=== PATIENT | male | born 1950 | race Caucasian/White ===

== ENCOUNTER 2017-06-10 08:06 | Outpatient (CLI) | payer MEDICARE ==
--- NOTE | 2017-06-10 08:53 | CT ---
CT OF THE CHEST WITHOUT CONTRAST LOW DOSE SCREENING PROTOCOL: History: 30-year history of smoking. Patient quit smoking in 2007. Technique: Multiple contiguous axial images were obtained in a CT of the chest without contrast per l ow dose cancer screening protocol. Coronal reformats were performed. FINDINGS: There is a triangular shaped nodular opacity immediately adjacent to the minor fissure in the right l maribeth measuring 4 mm in size. No other pulmonary nodules are seen. No pneumothorax or pleural effusion are seen. The heart is normal in size without focal cardiac abnormality. Soft tissues are seen in the coronary arteries and aorta. No enlarged hilar mediastinal lymph nodes are appreciated. Degenerative changes are seen in the spine. The chest wall soft tissues are unremarkable. The visuali zed subdiaphragmatic structures are unremarkable. IMPRESSION: 1. Lung rads category 2 - benign findings. POS: [facility]
== END 2017-06-10 08:07 | disposition home or self-care (01) ==
LOC: CT 08:06
PROVIDERS: ATTEND Family Medicine
DX: Z87.891 Personal history of nicotine dependence (principal)
CPT/HCPCS: G0297

== ENCOUNTER 2017-12-10 19:25 | Observation (INO) | payer MEDICARE ==
[~2017-12-10 19:25] MED LIST: ISOVUE-370 76%-LOCM 1 ML ONE
[2017-12-10 20:10] LABS: #Basophils 0.1 thou/uL (0.0-0.2); #Eosinphils 0.2 thou/uL (0.0-0.7); #Lymphocytes 3.1 thou/uL (1.20-3.40); #Monocytes 0.7 thou/uL (0.11-0.59); #Neutrophils 3.7 thou/uL (1.40-6.50); %Basophils 1.9 % (0.0-1.0); %Eosinophils 2.8 % (0.0-10.0); %Lymphocytes 39.4 % (21.0-51.0); %Monocytes 8.5 % (0.0-10.0); %Neutrophils 47.4 % (42.0-75.0); Hemoglobin 15.8 g/dL (14.0-18.0); Mean Corpuscular HGB CONC 35.4 g/dL (32.0-36.0); Mean Corpuscular Hemoglobin 32.3 pg (27.0-31.0); Mean Corpuscular Volume 91.2 fL (78.0-98.0); Mean Platelet Volume 6.6 fL (7.4-10.4); Platelet Count 175 thou/uL (130-400); RBC Distribution Width 12.9 % (11.5-14.5); Red Blood Cell (RBC) Count 4.89 mill/uL (4.70-6.10); White Blood Cell (WBC) Count 7.8 thou/uL (4.8-10.8)
[2017-12-10] MEDS ORDERED: Nitroglycerin 0.4 MG TAB (25 Tab Bottle) ONE (20:19)
[2017-12-10 20:36] LABS: ALT (SGPT) 19 U/L (8-55); AST (SGOT) 24 U/L (5-34); Alkaline Phosphatase 82 U/L (40-150); Anion Gap 17 mmol/L (10-20); BUN (Urea Nitrogen) 16 mg/dL (8.4-25.7); Bilirubin, Total 1.1 mg/dL (0.2-1.2); Calc. Creatinine Clearance 0 mL/min (70-130); Calcium 8.6 mg/dL (7.8-10.44); Carbon Dioxide 24 mmol/L (23-31); Chloride 101 mmol/L (98-107); Estimated GFR-MDRD 83; Globulin 2.6 g/dL (2.4-3.5); Glucose 101 mg/dL (80-115); Lipase 20 U/L (8-78); Potassium 3.4 mmol/L (3.5-5.1); Protein, Total 6.6 g/dL (5.8-8.1); Sodium 139 mmol/L (136-145)
[2017-12-10 20:38] LABS: Troponin I Less than 0.010 ng/mL (< 0.028)
[2017-12-10 20:46] LABS: CKMB 8.8 ng/mL (0-6.6)
[2017-12-10 21:14] LABS: Bilirubin Negative (Negative); Blood, Urine Moderate (Negative); Clarity CLEAR (Clear); Glucose, Urine (Dipstick) Negative (Negative); Leukocyte Negative (Negative); Nitrite Negative (Negative); Protein, Urine (Dipstick) Negative (Neg-Trace); Specific Gravity, Urine 1.014 (1.002-1.036)
[2017-12-10 21:16] LABS: Bacteria/HPF None Seen HPF (None Seen); Hyaline Casts/LPF 0-3 HYALINE CAST LPF (0-3 Hyaline); Pathc Cast-AUWi Flag 0.29 (0-2.49); Squamous Epithelial None Seen HPF (0-3); WBC/HPF 0-3 HPF (0-3)
--- NOTE | 2017-12-10 21:21 | RAD ---
CHEST ONE VIEW: 12/10/17 HISTORY: Chest pain. COMPARISON: CT 06/10/17. FINDINGS: Lungs without focal air space consolidation, pneumothorax or effusion. Incomplete evaluation of ACDF hardware. Heart size is at the upper limits of normal. Mild elevation of the left hemidiaphragm. IMPRESSION: No acute inflammatory process in the chest. POS: [facility]
--- NOTE | 2017-12-10 22:41 | CT ---
CT ANGIOGRAM OF THE CHEST 12/10/17 HISTORY: Evaluate for pulmonary artery embolism. Chest pain. COMPARISON: None. TECHNIQUE: CT angiogram of the chest is performed in the axial plane. Three dimensional reformatted images are s ubmitted for interpretation. FINDINGS: No mediastinal mass, lymphadenopathy or hematoma. Heart size is within normal limits. No pericardial fluid. The thoracic aorta and upper abdominal aorta have a normal caliber. No periaortic fat strandin g. There are coronary calcifications. The visualized upper solid organs are unremarkable. Adequate contrast opacification of the pulmonary arterial system to the level of the segmental arteri es. No filling defect to suggest thromboembolism. Trachea and central bronchi are patent. 5 mm nodule adjacent to the minor fissure likely representing a subpleural lymph node. Additional nodules are not appreciated. No pleural effusion. No pneumothora x. Minimal atelectatic changes are noted. No osseous abnormalities. IMPRESSION: 1. No evidence of pulmonary artery embolism to the level of the segmental arteries. 2. Pleural based opacity adjacent to the minor fissure likely represents a subpleural lymph node . This lesion is unchanged from a CT lung scan 06/10/17. POS: [facility]
[2017-12-10 23:38] LABS: Troponin I Less than 0.010 ng/mL (< 0.028)
[2017-12-10] MEDS ORDERED: Diabetic Tussin 200 MG/10 ML UDCUP PO PRN (23:54)
[2017-12-10] MEDS ORDERED: Mag-Al 1200 mg/1200 mg/30 ML UDCUP PO PRN (23:54)
[2017-12-10] MEDS ORDERED: Senokot 8.6 MG TAB PO PRN (23:54)
[2017-12-10] MEDS ORDERED: Calcium Carbonate 500 MG ChewTAB PO PRN (23:54)
[2017-12-10] MEDS ORDERED: Nitroglycerin 0.4 MG TAB (25 Tab Bottle) SL PRN (23:54)
[2017-12-10] MEDS ORDERED: Ondansetron HCl/PF 4 MG/2 ML Vial IVP PRN (23:54)
[2017-12-10] MEDS ORDERED: hydrALAZINE 20 MG/ML VIAL SLOW IVP PRN (23:54)
[2017-12-10] MEDS ORDERED: Bisacodyl 5 MG TAB PO PRN (23:54)
[2017-12-10] MEDS ORDERED: traZODone HCl 50 MG TAB PO PRN (23:54)
[2017-12-10] MEDS ORDERED: cloNIDine 0.1 MG TAB PO PRN (23:54)
[2017-12-10] MEDS ORDERED: Loratadine 10 MG TAB PO PRN (23:54)
[2017-12-10] MEDS ORDERED: traMADol HCl 50 MG TAB PO PRN (23:54)
[2017-12-10] MEDS ORDERED: Acetaminophen 325 MG TAB PO PRN (23:54)
[2017-12-10] MEDS ORDERED: Nitroglycerin 0.4 MG TAB (25 Tab Bottle) PO PRN (23:54)
[2017-12-11] MEDS: Lorazepam 1 MG TAB PO PRN ×2 (00:10→04:02)
[2017-12-11] MEDS ORDERED: Sodium Chloride 0.9% 1,000 ML IV SCH (02:30)
[2017-12-11 02:37] LABS: Troponin I Less than 0.010 ng/mL (< 0.028)
[2017-12-11 02:39] LABS: Cardiac Risk 1.9 (Less than 4.5)
--- NOTE | 2017-12-11 02:47 | HP ---
DATE OF ADMISSION: 12/10/2017 Patient was seen prior to midnight. CHIEF COMPLAINT: Chest pain. HISTORY OF PRESENT ILLNESS: Mr. Cohn is a very pleasant 67-year-old male without any significant pa st medical history except for kidney stones: who presented to the emergency room with above-mentioned complaint. History is mainly obtained with the patient himself and electronic medical records have been reviewed. Case has been discussed with admitting ER physician, Dr. Munroe. Mr. Cohn reports that last night he was woken up in the middle of night around 3:00 a.m. with about 3/10 chest pain located on the side of the sternum on the left side. He describes it as achy sensati on, which went away spontaneously. He cannot recall any relieving or exacerbating factors. It was a ssociated with some diaphoresis, but he denies any palpitations, shortness of breath, nausea, vomitin g, or dizziness. Next morning, he had the similar symptoms again in the middle of the day. He also reports that he had some groin and pelvic urinary pain and feels that he might have passed a kidney s tone. He has felt that pain in the past as well. He denies similar symptoms of the chest pain in th e past. He reports that he had underwent a stress test about 10 years ago, which was normal. One of his phys icians out of town actually did a PET scan of the heart or what sounds like a PET scan of the heart a nd it was false positive, so he underwent a cardiac catheterization, which was found to be normal. H e reports that this was about 5 years ago done in [place] by Dr. Gooden or somebody with similar na me. Upon presentation to the ER, he was hemodynamically stable and initial examination did not reveal any thing significant. His EKG was without any ST or T-wave changes and his cardiac enzymes are normal. He was given aspirin and sublingual nitroglycerin and he is now being admitted for further evaluatio n. He did have findings of elevated D-dimer, for which he underwent a CT scan of the chest, which wa s negative for any pulmonary embolism. No infiltrates or edema was seen either. PAST MEDICAL HISTORY: Renal stones. PAST SURGICAL HISTORY: 1. Kidney stone removal. 2. Cardiac catheterization, 5 years ago. 3. Cervical fusion C4 and C5. 4. Hernia repair x2. PSYCHIATRIC HISTORY: No prior psychiatric history. SOCIAL HISTORY: The patient drinks rarely. He has history of tobacco abuse in the past, up until ab out 5 years ago, where he was a 1 pack per day smoker. Since then, he is chewing tobacco. He also r eports an alcohol binge when he was on a fishing trip recently with his friends for the last 4 or 5 d ays. As a matter of fact: Has just returned yesterday and feels that he is a little bit jittery and shaky. He is not a daily drinker. FAMILY HISTORY: His father at the age of 73. He was a diabetic. His mom had a stroke 2 years ago and she is still alive. ALLERGIES: BENZOCAINE. MEDICATIONS: None. REVIEW OF SYSTEMS: A 12-point review of system is done, which is negative except for those mentioned in the history and physical. LABORATORY DATA: His CBC is unremarkable. D-dimer 0.45. Serum chemistry shows potassium of 3.4, ot herwise unremarkable. Creatine kinase slightly elevated 460. CK-MB 8.8 with normal troponin less th an 0.010. BNP is normal at 21. Lipase normal. Urinalysis show moderate blood. Chest x-ray by my r brie has no evidence to suggest any pleural effusion, infiltrate, or edema. CT angio is negative fo r pulmonary embolism. Twelve-lead EKG by my review shows no acute ST or T-wave changes. He has norm al sinus rhythm at 86 beats per minute. PHYSICAL EXAMINATION: VITAL SIGNS: Upon presentation, blood pressure 142/87, respirations 17, temperature 98.6, pulse of 8 9, saturating 96% on room air. GENERAL: No acute distress, awake, alert, oriented x3, very pleasant, sitting on the side of the bed , appears somewhat anxious. HEENT: Mucous membrane is moist and pink. No oropharyngeal exudate or erythema. Head is normocepha lic, atraumatic. Pupils equal, reactive to light and accommodation. Extraocular movement intact. NECK: Supple without any lymphadenopathy, JVD, or bruit. CHEST: Clear to auscultation without any wheezing, rales, or rhonchi. HEART: Rate and rhythm is regular without any murmur, rubs, or gallops. ABDOMEN: Soft, nontender, nondistended with positive bowel sounds. EXTREMITIES: Free of any cyanosis, clubbing, or edema. NEUROLOGIC: Nonfocal. SKIN: Free of any rashes or bruises. Feels warm and dry to touch. PSYCHIATRIC: Normal affect. IMPRESSION AND PLAN: 1. Chest pain. The patient does have multiple risk factors for the same. At this time, he does not seem to be having an acute coronary syndrome, however. He had a normal catheterization 5 years ago and what sounds like a false positive PET scan of the heart. At this time, we will admit him for fur ther risk stratification and continue the full-dose aspirin and check lipid panel. We will also obta in a pharmacological stress test in the morning. We will continue to trend serial cardiac enzymes an d use oxygen as necessary. 2. Mild rhabdomyolysis. No clear explanation to suggest the cause of it. 3. Hematuria. The patient might have symptoms of BPH. His urinalysis does not seem like a urinary tract infection. Urine culture has been sent. He will follow up with Urology as an outpatient. It is consistent with his presenting symptoms of penile pain and possibility that he might have passed r enal stone. 4. History of nephrolithiasis. 5. Code status: FULL CODE discussed with the patient. DISPOSITION: Mr. Cohn is currently being admitted under observation status to rule out acute faulkner ry syndrome. Further management will depend upon his clinical course.
[2017-12-11] MEDS ORDERED: Aspirin 325 MG TAB PO SCH (09:00)
[2017-12-11] MEDS ORDERED: ADENOSINE 60 MG/20 ML VIAL ONE (10:41)
[2017-12-11 15:50] VITALS: BP 111/72; TEMP 97.6
--- NOTE | 2017-12-11 16:37 | NM ---
CARDIAC SPECT: CLINICAL HISTORY: 67-year-old male with chest pain. TECHNIQUE: A myocardial perfusion scan was performed using the single isotope one day protocol with technetium-9 9m sestamibi. 9 mCi were injected intravenously for the rest exam followed by 28 mCi for the stress e xam. Pharmacologic stress with Adenosine was monitored and interpreted by Dr. Oglesby. FINDINGS: Homogeneous tracer distribution is seen in the myocardial segments on stress and rest images without fixed or reversible defects. GATED SPECT LVEF: 74%. WALL MOTION EXAM: Normal. IMPRESSION: Normal myocardial perfusion scan. POS: [facility]
--- NOTE | 2017-12-11 22:19 | DIS ---
DATE OF ADMISSION: 12/10/2017 DATE OF DISCHARGE: 12/11/2017 TRANSFER OF CARE PRIMARY CARE PROVIDER: Toni Cool MD DISCHARGE DISPOSITION: Home. FINAL DIAGNOSES: Noncardiac chest pain, some blood in urine. DISCHARGE MEDICATIONS: None. HOSPITAL COURSE: The patient admitted with, woke about 3:00 a.m. with 3/10 chest pain, left-sided, w ent away spontaneously. No associated symptoms. States he had a stress test 10 years ago that was n ormal. EKG was unrevealing. CT angio of the chest for PE was negative. Comp metabolic profile was normal except for a potassium of 3.4. CK was mildly elevated at 460. Troponins were normal x4. D-d marissa was elevated at 4.5, which is the reason the CT angio was done. CBC was normal. Nuclear medici ne cardiac stress test is normal. He also had a stool positive for occult blood. We have discussed all of these issues. He is currently comfortable with discharge. Vital signs are stable. Cardiores piratory exam is normal. I have advised him to follow up with Dr. Cool in 1 week and he can decide how to proceed with positive blood in the urine and the positive Hemoccult. The patient said he had a colonoscopy 4-5 years ago, which was perfectly normal. It is possible that the patient has some ga stroesophageal reflux disease; however, one episode in this long period of time to start him on a PPI, etc. CONSULTATIONS: None. PROCEDURES: None. FOLLOWUP: 7 days.
--- NOTE | 2017-12-13 10:53 | EKG ---
Test Reason : CP Blood Pressure : / mmHG Vent. Rate : 086 BPM Atrial Rate : 086 BPM P-R Int : 162 ms QRS Dur : 088 ms QT Int : 372 ms P-R-T Axes : 052 028 038 degrees QTc Int : 445 ms Normal sinus rhythm Normal ECG Confirmed by ELLIS SWARTZ, CATHLEEN ([id number]), multimedia editor JOAQUÍN CARLOS ([id number]) on 12/13/2017 10:53:03 AM Referred By: MD CORRAL Confirmed By:CATHELEN CORRAL MD
== END 2017-12-11 18:06 | disposition home or self-care (01) ==
LOC: ERS 19:25 → 2SW 23:53
PROVIDERS: ADMIT Internal Medicine; ATTEND Internal Medicine
DX: R07.89 Other chest pain (principal); R31.9 Hematuria, unspecified; M62.82 Rhabdomyolysis; Z88.8 Allergy status to other drugs, medicaments and biological substances; Z98.1 Arthrodesis status; Z98.890 Other specified postprocedural states
CPT/HCPCS: 71045; 71275; 78452; 80053; 80061; 82274; 82550; 82553; 83690; 83880; 84484 ×3; 85025; 85379; 87040; 87086; 93005; 93017; 94760; 96360; 96361; 99285; A9500; G0378 ×2; 36415; 81003; 81015; J0153